=== PATIENT | female | born 2005 | race Hispanic/Latino ===

== ENCOUNTER 2024-04-13 19:59 | Emergency (ER) | payer OTHER | END 2024-04-13 21:55 | disposition home or self-care (01) | LOC: CSHERS 19:59 → EDBD 19:59 → CSHERS 21:55 | DX: F10.129 Alcohol abuse with intoxication, unspecified (principal); Y90.8 Blood alcohol level of 240 mg/100 ml or more | CPT/HCPCS: 36415; 80307; 99284 ==